=== PATIENT | male | born 1955 | race Caucasian/White ===

== ENCOUNTER → 2016-03-11 | Outpatient (CLI) | payer OTHER ==
--- NOTE | 2016-03-11 08:01 | DIAGNOSTIC IMAGING REPORT ---
THYROID ULTRASONOGRAPHY CLINICAL HISTORY: Thyroid goiter COMPARISON STUDY: October 02, 2015 FINDINGS: The right lobe of thyroid measures 57 x 33 x 25 mm. The left lobe measures 52 x 30 x 21 mm. Both lobes are markedly heterogeneous without evidence of a focal dominant mass. IMPRESSION: Enlarged bilaterally heterogeneous thyroid gland, similar to the preceding examination. Electronically signed by: Min Teixeira M.D. 03/11/2016 8:00 AM Dictated Date/Time: 03/11/2016 7:58 AM
== END | disposition home or self-care (01) ==
LOC: C.ULTR 07:16
PROVIDERS: ATTEND Hospitalist
DX: E04.9 Nontoxic goiter, unspecified (principal)

== ENCOUNTER → 2016-08-30 | Outpatient (CLI) | payer OTHER ==
--- NOTE | 2016-08-30 08:18 | DIAGNOSTIC IMAGING REPORT ---
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 Evaluate for right middle ear space abnormality. COMPARISON STUDY: No previous studies for comparison. TECHNIQUE: Thin cut axial images of the temporal bones were obtained without IV contrast. Coronal reformats were viewed. FINDINGS: There is moderate mucosal thickening of the ethmoid and right sphenoid sinuses with lobulated secretions within the right sphenoid sinus. No bony destruction involving the sinuses is identified. Orbits are unremarkable. The left mastoid air cells are clear. There is a left sided stapes implant. There are findings suggestive of bilateral otosclerosis. There is no fluid or soft tissue within the left middle ear. There is abnormal soft tissue/fluid within the right middle ear with slight erosion of the right scutum. There is soft tissue within right Prussak's space extending along the ossicles and the inner aspect of the right tympanic membrane. The right mastoid air cells are largely opacified. There is no bony destruction of the right mastoid air cells. IMPRESSION: 1. Abnormal material within the right middle ear, adjacent to the ossicles and involving Prussak's space. Slight blunting of the right scutum. The findings could reflect a cholesteatoma or fluid. 2. Largely opacified right mastoid air cells. 3. Findings suggestive of bilateral otosclerosis. Left stapes implant in place. 4. Moderate mucosal thickening of the ethmoid sinuses with lobulated secretions within the right sphenoid sinus. Electronically signed by: Peter Abreu M.D. 08/30/2016 8:16 AM Dictated Date/Time: 08/30/2016 7:31 AM
== END | disposition home or self-care (01) ==
LOC: C.CTS 06:33
PROVIDERS: ATTEND Physician Assistant
DX: H80.93 Unspecified otosclerosis, bilateral (principal)

== ENCOUNTER → 2016-09-06 | Outpatient (CLI) | payer OTHER | END | disposition home or self-care (01) | LOC: C.LABSPEC 17:24 | PROVIDERS: ATTEND Physician Assistant | DX: H60.90 Unspecified otitis externa, unspecified ear (principal); H92.11 Otorrhea, right ear ==